=== PATIENT | female | born 1985 | race Caucasian/White ===

== ENCOUNTER 2018-05-26 17:23 | Emergency (ER) | payer MEDICAID ==
[~2018-05-26] VITALS: Ht 149.9 cm; Wt 39.0 kg
[~2018-05-26 17:23] MED LIST: IBUP-2213 PO
[2018-05-26 17:40] VITALS: BP 100/52
--- NOTE | 2018-05-26 17:44 | NUR ---
PT AMBULATED TO BED 1, REPORT TO NATALIA VIVEROS
--- NOTE | 2018-05-26 18:01 | NUR ---
PT TO ED WITH C/O GROIN PAIN RADIATING DOWN TO LEG. PT REPORTS THAT SHE HAS VERICOSE VEINS. PT DENIES INJURY OR TRAUMA. PT HAS FULL ROM TO LEG, CMS INTACT. PT PLACED INTO BED, PENDING MD LUX.
[2018-05-26] MEDS ORDERED: KETOROLAC 30 MG/ML VIAL IM ONE (18:05)
[2018-05-26 18:29] LABS: BASOPHILS % (AUTO) 0.5 % (0.0-2.0); EOSINOPHILS # (AUTO) 0.4 K/uL (0-0.4); EOSINOPHILS % (AUTO) 5.4 % (0.0-4.0); HEMATOCRIT 34.3 % (36-48); HEMOGLOBIN 11.4 g/dL (12.0-16.0); LYMPHOCYTES # (AUTO) 1.5 K/uL (2.5-16.5); LYMPHOCYTES % (AUTO) 19.7 % (20.5-51.1); MEAN CORPUSCULAR HEMOGLOBIN 32 pg (27-31); MEAN CORPUSCULAR HGB CONC 33 g/dL (33-37); MEAN CORPUSCULAR VOLUME 95.3 fL (80-94); MONOCYTES # (AUTO) 0.5 K/uL (0.8-1.0); MONOCYTES % (AUTO) 6.7 % (1.7-9.3); NEUTROPHILS # (AUTO) 5.2 K/uL (1.8-7.7); NEUTROPHILS % (AUTO) 67.7 % (42.2-75.2); PLATELET COUNT (AUTO) 246 K/uL (140-450); RED CELL DISTRIBUTION WIDTH 13.3 % (11.6-13.7); WHITE BLOOD COUNT (AUTO) 7.8 K/uL (4.8-10.8)
[2018-05-26 18:38] LABS: ANION GAP 11.7 (8-16); CARBON DIOXIDE 28.2 mmol/L (21-32); CREATININE 0.6 mg/dL (0.6-1.3); POTASSIUM 3.9 mmol/L (3.5-5.1)
[2018-05-26 18:45] LABS: ALBUMIN 3.5 g/dL (3.4-5.0); TOTAL BILIRUBIN 0.2 mg/dL (0.0-1.0)
--- NOTE | 2018-05-26 19:08 | NUR ---
REPORT TO JACKELINE CASTELLANOS FOR CONTINUITY OF CARE.
--- NOTE | 2018-05-26 19:08 | NUR ---
REPORT RECIEVED FROM NATALIA FOR CONTINUATION OF CARE.
[2018-05-26 19:44] VITALS: BP 105/58
== END 2018-05-26 19:44 | disposition home or self-care (01) ==
LOC: MED 17:23
DX: I83.91 Asymptomatic varicose veins of right lower extremity (principal); Z79.899 Other long term (current) drug therapy
CPT/HCPCS: 36415; 80053; 81025; 85025; 85379; 93971; 96372; 99284; J1885